=== PATIENT | female | born 1980 | race Caucasian/White ===

== ENCOUNTER 2018-05-12 05:55 | Emergency (ER) | payer BC ==
[2018-05-12 06:06] VITALS: BP 131/94; PULSE 87; TEMP 97.7; BMI 32.3
[2018-05-12] MEDS ORDERED: SODIUM CHLORIDE 0.9% 1000 ML INFUS.BAG IV ONE (07:25)
[2018-05-12] MEDS ORDERED: ACETAMINOPHEN 1000 MG/100 ML VIAL (NON FORMULARY) IVPB ONE (07:26)
[2018-05-12] MEDS ORDERED: METOCLOPRAMIDE HCL INJECTION 10 MG/2 ML VIAL IVPUSH ONE (07:26)
[2018-05-12] MEDS ORDERED: ACETAMINOPHEN INJECTION 100 ML IVPB ONE (07:33)
[2018-05-12] MEDS ORDERED: METOCLOPRAMIDE HCL INJECTION 10 MG/2 ML VIAL ONE (07:33)
--- NOTE | 2018-05-12 07:40 | PDOC ---
History of Present Illness - General Chief Complaint: Migraine Headache Stated Complaint: migraine Time Seen by Provider: 05/12/18 07:25 History Source: Patient Exam Limitations: No Limitations - History of Present Illness Initial Comments: 05/12/18 07:26 30 L female history of migraines who today complaining of a headache. Patient states she used to have headaches every few months however has not had a bad headache and one year. States her headache started suddenly in the early a.m. she does have associated nausea denies any vision changes is throbbing and frontal in quality no radiation no associated weakness numbness are changed her speech. Is similar to her prior migraines denies any fevers or chills however she does have myalgia and bilateral legs. No nasal congestion cough no known sick contacts no travel no trauma. She used to take Topamax for migraines was discontinued and recently restarted on the medication Past History - Past Medical History Allergies/Adverse Reactions: Allergies Allergy/AdvReac Type Severity Reaction Status Date / Time amoxicillin trihydrate AdvReac Mild Nausea Verified 12/26/15 12:00 [From Augmentin] potassium clavulanate AdvReac Mild Nausea Verified 03/29/16 20:09 [From Augmentin] Home Medications: Ambulatory Orders Topiramate [Topamax -] 50 mg PO AM 04/02/12 Topiramate [Topamax] 100 mg PO HS 12/26/15 Aripiprazole [Abilify] 20 mg PO DAILY 03/29/16 COPD: No GI Disorders: Yes (GERD) Disorders: Yes Psychiatric Problems: Yes (ANXIETY, DEPRESSION) Seizures: Yes - Immunization History Immunization Up to Date: Yes - Suicide/Smoking/Psychosocial Hx Smoking Status: Yes Smoking History: Current every day smoker Have you smoked in the past 12 months: No Number of Cigarettes Smoked Daily: 10 Information on smoking cessation initiated: Yes 'Breaking Loose' booklet given: 03/29/16 Hx Alcohol Use: No Drug/Substance Use Hx: No Substance Use Type: Alcohol Review of Systems - Review of Systems Constitutional: No: Chills, Diaphoresis, Fever HEENTM: No: Eye Pain, Blurred Vision, Tearing Respiratory: No: Cough, Orthopnea Cardiac (ROS): No: Chest Pain, Edema, Lightheadedness Integumentary: No: Bruising, Change in Color Neurological: Yes: Headache. No: Numbness, Paresthesia, Tremors, Weakness All Other Systems: Reviewed and Negative *Physical Exam - Vital Signs Last Vital Signs Temp Pulse Resp BP Pulse Ox 97.7 F 87 18 131/94 98 05/12/18 05:56 05/12/18 05:56 05/12/18 05:56 05/12/18 05:56 05/12/18 05:56 - Physical Exam Comments: 05/12/18 07:41 Awake alert no acute distress head is atraumatic. Pupils are equally round and reactive to light lungs are clear bilaterally heart is regular with any murmurs rubs or gallops abdomen is soft and nontender neurologically patient is alert and oriented 3 speech is clear strength is 5 out of 5 all 4 extremities skin is warm and dry no rash Moderate Sedation - Procedure Monitoring Vital Signs: Procedure Monitoring Vital Signs Temperature 97.7 F 05/12/18 05:56 Pulse Rate 87 05/12/18 05:56 Respiratory Rate 18 05/12/18 05:56 Blood Pressure 131/94 05/12/18 05:56 O2 Sat by Pulse Oximetry (%) 98 05/12/18 05:56 ED Treatment Course - LABORATORY CBC & Chemistry Diagram: 05/12/18 06:00 05/12/18 06:00 Medical Decision Making - Medical Decision Making 05/12/18 07:52 30-year-old female history of migraines here with a history of migraines here presenting with a classic migraine-like headache. Plan rule out any associated anemia or lecture M malady. Rule out . IV hydration and Reglan we'll reassess likely follow-up with the patient's neurologist patient has a normal neurological exam 05/12/18 08:51 ucg negative labs unremarkable. pt feeling improved. resting comfortably. will dc home with [facility]. *DC/Admit/Observation/Transfer Diagnosis at time of Disposition: Migraine - Discharge Dispostion Disposition: HOME Condition at time of disposition: Improved Decision to Admit order: No - Referrals Referrals: Emre Aldridge MD [Staff Physician] - - Patient Instructions Printed Discharge Instructions: Migraine -- Adult Additional Instructions: you can take motrin 600 mg every 8 hrs as needed for headache. take with food. return for fever, vomiting, confusion, weaknes or any concerns. you should follow up with your primary doctor. call to schedule. follow up with nuerologist , if you do not have one you can see dr. aldridge, call to schedule. - Post Discharge Activity
[2018-05-12 08:15] LABS: BASO % 0.4 % (0-2.0); EOS % 1.5 % (0-4.5); HEMATOCRIT 38.2 % (32.4-45.2); HEMOGLOBIN 12.7 GM/dl (10.7-15.3); LYMPH % 21.9 % (8-40); MCH 31.1 pg (25.7-33.7); MCHC 33.3 g/dl (32.0-36.0); MEAN CELL VOLUME 93.6 fl (80-96); MEAN PLT VOLUME 10.3 fl (7.5-11.1); MONO % 7.6 % (3.8-10.2); NEUT % 68.6 % (42.8-82.8); PLATELET COUNT 253 K/MM3 (134-434); RBC 4.08 M/mm3 (3.60-5.2); RDW 12.4 % (11.6-15.6); WHITE BLOOD COUNT 7.7 K/mm3 (4.0-10.8)
[2018-05-12 08:28] LABS: ALBUMIN 3.5 g/dl (3.4-5.0); ALK PHOS 78 U/L (45-117); ANION GAP 8 MMOL/L (8-16); BILIRUBIN,TOTAL 0.3 mg/dl (0.2-1); BLOOD UREA NITROGEN 18 mg/dl (7-18); CALCIUM 8.7 mg/dl (8.5-10); CHLORIDE 107 mmol/L (98-107); CO2 24 mmol/L (21-32); CREATININE 0.8 mg/dl (0.55-1.3); GLUCOSE,RANDOM 86 mg/dl (74-106); POTASSIUM 4.2 mmol/L (3.5-5.1); SGOT/AST 16 U/L (15-37); SGPT/ALT 13 U/L (13-61); SODIUM 139 mmol/L (136-145); TOT PROT 6.5 g/dl (6.4-8.2)
[2018-05-12] MEDS ORDERED: KETOROLAC TROMETHAMINE 30 MG/1 ML VIAL IVPUSH ONE (08:45)
[2018-05-12] MEDS ORDERED: KETOROLAC TROMETHAMINE 30 MG/1 ML VIAL ONE (09:01)
== END 2018-05-12 09:27 | disposition home or self-care (01) ==
LOC: FER 05:55
PROC: 3E0333Z Introduction of Anti-inflammatory into Peripheral Vein, Percutaneous Approach (ICD-10-PCS; principal; 2018-05-12)
PROC: 3E033NZ Introduction of Analgesics, Hypnotics, Sedatives into Peripheral Vein, Percutaneous Approach (ICD-10-PCS; 2018-05-12)
PROC: 3E033GC Introduction of Other Therapeutic Substance into Peripheral Vein, Percutaneous Approach (ICD-10-PCS; 2018-05-12)
DX: G43.909 Migraine, unspecified, not intractable, without status migrainosus (principal)
CPT/HCPCS: 36415; 80053; 82550; 84703; 85025; 99283-25; J0131; J7030